=== PATIENT | male | born 1935 | race Caucasian/White ===

== ENCOUNTER 2024-05-22 11:34 | Inpatient (IN) | payer OTHER ==
[~2024-05-22] VITALS: Ht 172.7 cm; Wt 66.4 kg
[2024-05-22 12:04] LABS: Hematocrit 42.5 % (37.0-53.0); Hemoglobin 14.5 g/dL (13.5-17.5); Mean Corpuscular HGB 32.7 pg (26.0-34.0); Mean Corpuscular HGB Conc 34.1 g/dL (31.5-36.5); Mean Corpuscular Volume 96 fL (80-100); Mean Platelet Volume 10.6 fL (9.1-12.4); Platelet Count 632 K/mm3 (150-400); RDW Coefficient Variation 13.7 % (11.7-14.2); RDW Standard Deviation 48.9 fL (35.1-46.3); Red Blood Cell Count 4.43 M/mm3 (4.30-5.90); White Blood Cell Count 42.07 K/mm3 (4.00-11.30)
[2024-05-22 12:17] LABS: Albumin, Blood 1.9 g/dL (3.4-5.0); Albumin/Globulin Ratio 0.4 (0.8-1.8); Bilirubin, Total 0.6 mg/dL (0.1-1.0); Calcium, Blood 9.3 mg/dL (8.5-10.1); Creatinine, Blood 1.2 mg/dL (0.60-1.20); Globulin, Blood 4.6 g/dL (2.2-4.0); Potassium, Blood 4.4 mmol/L (3.5-5.5); Total Protein, Blood 6.5 g/dL (6.4-8.2)
[2024-05-22 13:28] LABS: BASOPHILS PERCENT MAN 0 % (0-2); EOSINOPHILS PERCENT MAN 0 % (0-6); LYMPHOCYTES ABSOLUTE MAN 2.52 K/mm3 (0.84-5.20); LYMPHOCYTES PERCENT MAN 6 % (21-46); MONOCYTES PERCENT MAN 5 % (4-13); NEUTROPHILS ABSOLUTE MAN 37.44 K/mm3 (1.96-9.15); SEG NEUTROPHILS PERCENT MAN 89 % (41-73); TOTAL CELLS COUNTED 100
[2024-05-22] MEDS ORDERED: Azithromycin 500 MG in NS 250 ML IV SCH (18:00)
[2024-05-22] MEDS ORDERED: Polyethylene Glycol 3350 17 gm PO PRN (18:00)
[2024-05-22] MEDS ORDERED: FLU VACC TS2024-25(6MOS UP)/PF 45 MCG/0.5 ML SYRINGE IM SCH (18:00)
[2024-05-22] MEDS ORDERED: Dextromethorphan Polistirix 30 MG/5 ML 5ML Oral Syringe PO PRN (18:05)
[2024-05-22] MEDS ORDERED: HYDROcodone 5-APAP 325 TAB PO PRN (18:05)
[2024-05-22] MEDS ORDERED: CefTRIAXone Sodium 1,000 MG in NS 100 ML IV SCH (19:00)
[2024-05-22] MEDS ORDERED: Docusate Sodium/Senna 1 Tab PO SCH (21:00)
[2024-05-22] MEDS ORDERED: GuaiFENesin 600 MG TabCR PO SCH (21:00)
[2024-05-22 22:03] VITALS: BP 151/61
[2024-05-22] MEDS ORDERED: THERA-D2000 UNIT PO (22:09)
[2024-05-22] MEDS ORDERED: TIMO.5OPSO BOTHEYES (22:10)
[2024-05-22] MEDS ORDERED: GENTEAL TEARS S10 GM BOTHEYES (22:11)
[2024-05-22] MEDS ORDERED: B-1100 M1 PO (22:12)
[2024-05-22] MEDS ORDERED: CYAN1000I IM (22:12)
[2024-05-22] MEDS ORDERED: MULVITA PO (22:12)
[2024-05-22] MEDS ORDERED: GLUCOSE4 GM PO (22:14)
[2024-05-22] MEDS ORDERED: SILDENAFIL CIT100 MG PO (22:15)
--- NOTE | 2024-05-23 05:13 | NUR ---
SHIFT SUMMARY: Pt is admitted for acute hypoxic respiratory failure and is a full code. Is alert and able to make needs known. ADLs have been SBA. denies pain or discomfort when asked. Telly reports sinus in the 90s. When coming to the floor about 2300 a lactic acid of 6.6 was noted. Spoke with ARA Altamirano he gave orders for a follow up test. Results were 2.5. This result was reported to Dr. Ramirez who stated he was going to do a chart review and input any new orders if needed at that time. No new orders noted at time of this writing.
[2024-05-23 06:05] LABS: Hematocrit 44.4 % (37.0-53.0); Hemoglobin 14.8 g/dL (13.5-17.5); Mean Corpuscular HGB 31.8 pg (26.0-34.0); Mean Corpuscular HGB Conc 33.3 g/dL (31.5-36.5); Mean Corpuscular Volume 96 fL (80-100); Mean Platelet Volume 9.6 fL (9.1-12.4); Platelet Count 587 K/mm3 (150-400); RDW Coefficient Variation 13.8 % (11.7-14.2); RDW Standard Deviation 48.3 fL (35.1-46.3); Red Blood Cell Count 4.65 M/mm3 (4.30-5.90); White Blood Cell Count 39.41 K/mm3 (4.00-11.30)
[2024-05-23 06:23] VITALS: BP 114/73
[2024-05-23 06:44] LABS: Albumin, Blood 1.9 g/dL (3.4-5.0); Anion Gap 12 mmol/L (3-11); Blood Urea Nitrogen 32 mg/dL (8-24); Bun/Creatinine Ratio 31.7 (12.0-20.0); CO2, Blood 25 mmol/L (21-32); Calcium, Blood 9.2 mg/dL (8.5-10.1); Chloride, Blood 101 mmol/L (98-108); Creatinine, Blood 1.01 mg/dL (0.60-1.20); Glomerular Filtration Rate 72 (60-); Glucose, Blood 128 mg/dL (70-99); Magnesium, Blood 2.3 mg/dL (1.6-2.4); Phosphorus, Blood 4.3 mg/dL (2.5-4.9); Potassium, Blood 4.3 mmol/L (3.5-5.5); Sodium, Blood 134 mmol/L (136-145)
[2024-05-23 07:30] VITALS: BP 122/71
[2024-05-23 08:13] LABS: Total Protein, Blood 6.9 g/dL (6.4-8.2)
[2024-05-23] MEDS ORDERED: Cholecalciferol 1000 Unit Tablet (=25MCG) PO SCH (09:00)
[2024-05-23 10:29] LABS: International Normalized Ratio 1.33; Prothrombin Time Results 13.9 Sec (9.7-11.5)
[2024-05-23 13:18] LABS: Automated BF RBC Count 0.014 M/mm3 (0-0)
[2024-05-23 13:36] LABS: Body Fluid WBC Count 21460 /mm3 (0-999); RBC Count, Body Fluid 14000 /mm3 (0-0)
[2024-05-23 13:39] LABS: Protein, Body Fluid 3.9 g/dL
[2024-05-23 14:06] LABS: Lactate Dehydrogenase, Body Fl 2072 U/L
[2024-05-23 14:36] LABS: Total Cell Count, Body Fluid 100
[2024-05-23 14:37] LABS: Color, Body Fluid Yellow (None-Yellow)
[2024-05-23 14:38] LABS: Appearance, Body Fluid Cloudy (Clear)
--- NOTE | 2024-05-23 15:52 | NUR ---
MET WITH PT AND HIS , SIDRA AT PT'S BEDSIDE. PT CLARIFIED, HE WANTS TO REMAIN A FULL CODE WITH FULL MEDICAL INTERVENTIONS. PT'S IS IN FULL SUPPORT OF PT'S WISHES. REQUEST SENT TO [facility], REQUESTING A COPY OF PT'S ADVANCE DIRECTIVE.
--- NOTE | 2024-05-23 16:27 | NUR ---
NOTE: NOTIFIED BY TELE OF PT'S HR SUSTANING 120-130. ORDER FOR AN EKG WAS PROVIDED. DR. LUNA NOTIFIED OF EKG COMPLETION AND RESULTS REVIEWED OVER THE PHONE. NO NEW ORDERS AT THIS TIME VIA TELEPHONE.
[2024-05-23] MEDS ORDERED: Carvedilol 3.125 MG Tab PO SCH (17:00)
[2024-05-23] MEDS ORDERED: Diltiazem HCl 5 MG / ML 5ML Vial IV ONE (17:25)
[2024-05-23] MEDS ORDERED: dilTIAZem HCL 30 MG TAB PO PRN (17:35)
--- NOTE | 2024-05-23 17:57 | NUR ---
SHIFT SUMMARY PT AOX4, VERY KNIK EVEN WITH HEARING AIDES IN PLACE. MAKES HIS NEEDS KNOWN. SBA TO THE BR. CONTINENT. MEDICATED FOR PAIN AND INCREASING HR PER THE EMAR. EKG OBTAINED THIS SHIFT AND IN THE CHART. SEE OTHER NOTE ABOUT PT'S HR. PT'S FAMILY AT THE BS THIS SHIFT. PT HAS BEEN ASYMPTOMATIC WITH HR INCREASES. HE HAS BEEN SLEEPING MOST OF THE SHIFT. REPOSITIONED THROUGHOUT THE SHIFT. CALL LIGHT WITHIN REACH, BED LOCKED AND IN THE LOWEST POSITION. WILL REPORT TO ONCOMING NURSE.
[2024-05-23 18:05] VITALS: BP 115/76
--- NOTE | 2024-05-23 18:16 | NUR ---
NOTE: SPOKE WITH TELE, 30 MINUTES POST IV CARDIZEM, PT'S HEART RATE IS NOW SUSTAINING [address] LUNA NOTIFIED AND HE RECOMMENDS GIVING PT A DOSE OF ORAL CARDIZEM.
[2024-05-23 19:53] VITALS: BP 114/72
[2024-05-24 02:45] VITALS: BP 127/66
--- NOTE | 2024-05-24 04:20 | NUR ---
SHIFT SUMMARY PATIENT HAD NO ACUTE CHANGES. AXOX 3-4 AND SBA TO BR. PIV INTACT. TELE MONITOR A-FLUTTER 111 WITH NO TELE EVENTS. DENIES CHEST PAIN, SOB, AND N/V. VSS/AFEBRILE. ON 3L O2 NC AND WILL PULL OFF. PULLED TELE LEADS OFF X ONE. RA BASELINE. CALL LIGHT IN REACH. BED IN LOWEST POSITION. WILL CONTINUE TO MONITOR UNTIL DAY SHIFT NURSE ASSUMES CARE.
[2024-05-24 06:56] LABS: Albumin, Blood 1.5 g/dL (3.4-5.0); Anion Gap 11 mmol/L (3-11); Blood Urea Nitrogen 26 mg/dL (8-24); Bun/Creatinine Ratio 31.4 (12.0-20.0); CO2, Blood 27 mmol/L (21-32); Calcium, Blood 8.7 mg/dL (8.5-10.1); Chloride, Blood 100 mmol/L (98-108); Creatinine, Blood 0.83 mg/dL (0.60-1.20); Glomerular Filtration Rate 85 (60-); Glucose, Blood 116 mg/dL (70-99); Magnesium, Blood 2.3 mg/dL (1.6-2.4); Phosphorus, Blood 3.3 mg/dL (2.5-4.9); Potassium, Blood 3.8 mmol/L (3.5-5.5); Sodium, Blood 134 mmol/L (136-145)
[2024-05-24 07:26] VITALS: BP 137/86
[2024-05-24] MEDS ORDERED: Carvedilol 6.25 MG Tab PO SCH ×2 (08:00)
[2024-05-24 08:57] LABS: Hematocrit 38.8 % (37.0-53.0); Hemoglobin 12.9 g/dL (13.5-17.5); Mean Corpuscular HGB 31.7 pg (26.0-34.0); Mean Corpuscular HGB Conc 33.2 g/dL (31.5-36.5); Mean Corpuscular Volume 95 fL (80-100); Platelet Count 530 K/mm3 (150-400); RDW Coefficient Variation 13.8 % (11.7-14.2); RDW Standard Deviation 48.3 fL (35.1-46.3); Red Blood Cell Count 4.07 M/mm3 (4.30-5.90); White Blood Cell Count 33.69 K/mm3 (4.00-11.30)
[2024-05-24 15:03] VITALS: BP 125/71
[2024-05-24 19:10] VITALS: BP 116/59
[2024-05-24] MEDS ORDERED: NS 1,000 ML BAG IV SCH (19:20)
[2024-05-25] MEDS ORDERED: NS 250 ML IV PRN (00:35)
--- NOTE | 2024-05-25 03:18 | NUR ---
PT WITH DISTRESS OVER HICCUPS, CONSTANT THROUGH SHIFT WITH NO SUCCESS IN DIMINISHING THEM. LS WITH RHONCHI T/O, NO COUGH, VS WNL, AFEBRILE. REMAINS ON 3L OF O2. TELE IS NSR IN THE 'S. STILL AWAITING ECHO, NO PLAN FOR D/C OF THIS SHIFT. UP TO BR TO VOID WITHOUT ASSIST, FORGETS TO PUT O2 BACK ON, CHECKED OFTEN.
[2024-05-25 03:32] VITALS: BP 130/79
[2024-05-25 05:44] LABS: Hematocrit 37.1 % (37.0-53.0); Hemoglobin 12.7 g/dL (13.5-17.5); Mean Corpuscular HGB 32.2 pg (26.0-34.0); Mean Corpuscular HGB Conc 34.2 g/dL (31.5-36.5); Mean Corpuscular Volume 94 fL (80-100); Mean Platelet Volume 9.5 fL (9.1-12.4); Platelet Count 481 K/mm3 (150-400); RDW Coefficient Variation 13.9 % (11.7-14.2); RDW Standard Deviation 47.9 fL (35.1-46.3); Red Blood Cell Count 3.94 M/mm3 (4.30-5.90); White Blood Cell Count 29.51 K/mm3 (4.00-11.30)
[2024-05-25 05:53] LABS: Albumin, Blood 1.6 g/dL (3.4-5.0); Anion Gap 12 mmol/L (3-11); Blood Urea Nitrogen 22 mg/dL (8-24); Bun/Creatinine Ratio 30.3 (12.0-20.0); CO2, Blood 25 mmol/L (21-32); Calcium, Blood 8.6 mg/dL (8.5-10.1); Chloride, Blood 102 mmol/L (98-108); Creatinine, Blood 0.73 mg/dL (0.60-1.20); Glomerular Filtration Rate 88 (60-); Glucose, Blood 108 mg/dL (70-99); Magnesium, Blood 2.2 mg/dL (1.6-2.4); Phosphorus, Blood 3.6 mg/dL (2.5-4.9); Potassium, Blood 3.9 mmol/L (3.5-5.5); Sodium, Blood 135 mmol/L (136-145)
[2024-05-25 07:22] VITALS: BP 120/67
[2024-05-25] MEDS ORDERED: Lactobacil 2-S.Thermo-Bifido 1 1 Cap PO SCH (09:00)
[2024-05-25] MEDS ORDERED: Vancomycin HCL 1,500 MG in NS 250 ML IV ONE (09:50)
[2024-05-25 15:47] VITALS: BP 130/79
[2024-05-25 19:28] VITALS: BP 122/77
[2024-05-25] MEDS ORDERED: Vancomycin HCL 1,000 MG in NS 250 ML IV SCH (22:00)
[2024-05-26 05:19] VITALS: BP 113/57
[2024-05-26 05:33] LABS: Hematocrit 37.5 % (37.0-53.0); Hemoglobin 12.2 g/dL (13.5-17.5); Mean Corpuscular HGB 32.1 pg (26.0-34.0); Mean Corpuscular HGB Conc 32.5 g/dL (31.5-36.5); Mean Platelet Volume 10.1 fL (9.1-12.4); Platelet Count 357 K/mm3 (150-400); RDW Coefficient Variation 14.2 % (11.7-14.2); RDW Standard Deviation 51.7 fL (35.1-46.3); White Blood Cell Count 28.55 K/mm3 (4.00-11.30)
[2024-05-26 05:44] LABS: Mean Corpuscular Volume 99 fL (80-100)
[2024-05-26 05:57] LABS: Bun/Creatinine Ratio 40.7 (12.0-20.0); Calcium, Blood 8.3 mg/dL (8.5-10.1); Creatinine, Blood 0.59 mg/dL (0.60-1.20)
--- NOTE | 2024-05-26 06:22 | NUR ---
pt with increased confusion, continues to moan, and difficult to communicate with this shift. Pt recieving IVABX, no taking PO fluids in well this shift, only voided x1 in last 12 hrs. Pt VS WNL with exception of O2 sat, he desated to 83% on RA and had to increase to 4L to achieve 90%, Pt declinined in the past 24 hrs. will continue to monitor, Pt also converted to afib in past 14 hrs. to have CXR and potential CT placement of chest tube.
[2024-05-26 07:48] VITALS: BP 126/63
--- NOTE | 2024-05-26 09:52 | NUR ---
PATIENT GOING FOR CT-GUIDED CHEST TUBE PLACEMENT. PER CT, PT WILL BE TRANSPORTED JUST BEFORE 1400. NPO AFTER BREAKFAST.
--- NOTE | 2024-05-26 13:55 | NUR ---
PATIENT TO CT FOR CT-GUIDED CHEST TUBE PLACEMENT.
--- NOTE | 2024-05-26 14:49 | NUR ---
PATIENT BACK TO ROOM AFTER CHEST TUBE PLACEMENT.
--- NOTE | 2024-05-26 15:24 | NUR ---
CALL FROM MIKE IN PATHOLOGY; SHE HAS SPECIMEN OF BODY FLUID WITHOUT COLLECTION TIME OR LAB ORDER. NO ORDERS RECEIVED. WILL CONTACT CT TO SEE IF INSTRUCTIONS GIVEN. ALSO DID NOT RECEIVE AFTERCARE INSTRUCTIONS FOR URESIL DRAIN WITH WHICH PT RETURNED.
--- NOTE | 2024-05-26 15:32 | NUR ---
SPOKE WITH HAILEE IN CT: URESIL DRAIN WAS PLACED IN ABSCESS NEAR THE CHEST WALL. RADIOLOGIST IS READING, RIGHT NOW, AND THEN NOTE WILL BE DICTATED. DECISION REGARDING FLUID COLLECTION PATHOLOGY IS UP TO THE ORDERING PROVIDER. AWAITING CALL BACK FROM DR. HADLEY.
[2024-05-26 15:43] VITALS: BP 111/65
--- NOTE | 2024-05-26 18:12 | NUR ---
END OF SHIFT SUMMARY: A&Ox4. COOPERATIVE WITH CARE, BUT IMPULSIVE. DOES NOT UTILIZE CALL LIGHT AND IS ABLE TO ADVOCATE NEEDS. HARD OF HEARING, SO HAS DIFFICULTY WITH ANSWERING QUESTIONS. CONTINENT OF BOWEL AND BLADDER; SBA TO BATHROOM FOR LINE MANAGEMENT. MEDS WHOLE, BSP-CN-Y-TIME WITH FLUIDS. HAD US-GUIDED PLACEMENT OF 12-ENGLISH PIGTAIL CATHETER IN LEFT POSTERIOR CHEST WALL. URESIL DRAINAGE COLLECTION BAG ATTACHED, DRAINING CLOUDY, YELLOW FLUID. DID EVENTUALLY AGREE TO TAKE A PRN NORCO AND HAS BEEN SLEEPING MOST OF AFTERNOON. NOTED TO HAVE EXCORIATION WITH FIRST-LAYER PRESSURE INJURY NOTED TO INTERGLUTEAL CLEFT. MEPILEX APPLIED. TELE A-FLUTTER THIS MORNING AND CONVERTED TO SINUS SOMETIME THIS AFTERNOON. BED IN LOWEST POSITION, CALL LIGHT WITHIN REACH, ALL NEEDS MET. REPORT TO ONCOMING NURSE.
--- NOTE | 2024-05-26 18:37 | NUR ---
SUAD CAMP, NOTIFIED THIS RN THAT PATIENT JUMPED UP TO USE THE BATHROOM, HE HAS BEEN DOING ALL DAY, AND DID NOT TAKE HIS URESIL BAG WITH HIM, PULLING THE TUBE, BEFORE STAFF WERE ABLE TO HELP HIM. AREA WITH SCAN AMOUNT OF BLEEDING. TUBE INTACT. ON-CALL, DR. BENJAMIN, NOTIFIED.
[2024-05-26 18:43] VITALS: BP 98/60
--- NOTE | 2024-05-26 18:43 | NUR ---
TELE CALLED STATING HR 39. PATIENT HAD JUST AMBULATED BACK FROM THE BATHROOM AND WAS LAYING IN BED.
[2024-05-26] MEDS ORDERED: Atropine Sulfate 0.1 MG/ML 10ML SYR IV PRN (18:55)
[2024-05-26 19:15] VITALS: BP 121/60
--- NOTE | 2024-05-26 19:48 | NUR ---
END OF SHIFT SUMMARY: A&Ox4. COOPERATIVE WITH CARE, BUT IMPULSIVE. DOES NOT UTILIZE CALL LIGHT AND IS ABLE TO ADVOCATE NEEDS. HARD OF HEARING, SO HAS DIFFICULTY WITH ANSWERING QUESTIONS. CONTINENT OF BOWEL AND BLADDER; SBA TO BATHROOM FOR LINE MANAGEMENT. MEDS WHOLE, EXY-EB-L-TIME WITH FLUIDS. HAD US-GUIDED PLACEMENT OF 12-[place] PIGTAIL CATHETER IN LEFT POSTERIOR CHEST WALL. URESIL DRAINAGE COLLECTION BAG ATTACHED, DRAINING CLOUDY, YELLOW FLUID. DID EVENTUALLY AGREE TO TAKE A PRN NORCO AND HAS BEEN SLEEPING MOST OF AFTERNOON. NOTED TO HAVE EXCORIATION WITH FIRST-LAYER PRESSURE INJURY NOTED TO INTERGLUTEAL CLEFT. MEPILEX APPLIED. TELE A-FLUTTER THIS MORNING AND CONVERTED TO SINUS SOMETIME THIS AFTERNOON. PATIENT PULLED URESIL SHORTLY AFTER PLACEMENT WHEN JUMPING UP TO USE THE RESTROOM AND HR DROPPED <40 SHORTLY THEREAFER. PROVIDER NOTIFIED. BED IN LOWEST POSITION, CALL LIGHT WITHIN REACH, ALL NEEDS MET. REPORT TO ONCOMING NURSE.
[2024-05-26 21:27] LABS: Vancomycin, Trough 16.1 ug/mL (5.0-10.0)
[2024-05-27 00:27] VITALS: BP 113/62
[2024-05-27 03:03] VITALS: BP 117/61
--- NOTE | 2024-05-27 07:31 | NUR ---
SHIFT SUMMARY AT START OF SHIFT, PT SLEEPING IN HIS BED. WITH EVENING MED PASS, PT IV WAS OCCLUDED AND UNABLE TO FLUSH. DC D IV AND STARTED NEW 20G IV IN RIGHT FOREARM. PT TOLLERATED WELL. NOTED ON EMAR THAT PT HAD ATROPINE ORDERED. CALLED DR. MILAN TO LET HIM KNOW THIS MEDICATION IS NOT APPROPRIATE FOR MEDICAL STATUS, AND CAN NOT BE GIVEN BY RN S ON THIS FLOOR. MED DC D. 0230, PT UP AT BEDSIDE TO USE URINAL. 200ML OUTPUT.
[2024-05-27 08:07] VITALS: BP 128/80
[2024-05-27] MEDS ORDERED: Enoxaparin 40 MG/0.4 ML SYR SC SCH (13:00)
[2024-05-27 14:01] LABS: Hematocrit 35.4 % (37.0-53.0); Hemoglobin 11.8 g/dL (13.5-17.5); Mean Corpuscular HGB 31.4 pg (26.0-34.0); Mean Corpuscular HGB Conc 33.3 g/dL (31.5-36.5); Mean Platelet Volume 9.3 fL (9.1-12.4); Platelet Count 437 K/mm3 (150-400); RDW Standard Deviation 48.1 fL (35.1-46.3); Red Blood Cell Count 3.76 M/mm3 (4.30-5.90); White Blood Cell Count 21.15 K/mm3 (4.00-11.30)
[2024-05-27] MEDS ORDERED: Dose Adjust by Pharmacy XX STA (14:03)
[2024-05-27] MEDS ORDERED: Heparin Sodium,Porcine/0.5 NS 500 ML IV SCH (14:05)
[2024-05-27 14:07] LABS: Mean Corpuscular Volume 94 fL (80-100)
[2024-05-27 14:12] LABS: International Normalized Ratio 1.17; Prothrombin Time Results 12.4 Sec (9.7-11.5)
[2024-05-27 14:55] LABS: BAND PERCENT MAN 29 % (0-8); BASOPHILS PERCENT MAN 0 % (0-2); EOSINOPHILS ABSOLUTE MAN 0.21 K/mm3 (0.00-0.68); EOSINOPHILS PERCENT MAN 1 % (0-6); LYMPHOCYTES ABSOLUTE MAN 1.48 K/mm3 (0.84-5.20); LYMPHOCYTES PERCENT MAN 7 % (21-46); METAMYELOCYTE ABSOLUTE MAN 0.42 K/mm3 (0.00-0.00); METAMYELOCYTE PERCENT MAN 2 % (0-0); MONOCYTES ABSOLUTE MAN 0.84 K/mm3 (0.16-1.47); MONOCYTES PERCENT MAN 4 % (4-13); MYELOCYTE ABSOLUTE MAN 0.21 K/mm3 (0.00-0.00); MYELOCYTE PERCENT MAN 1 % (0-0); NEUTROPHILS ABSOLUTE MAN 17.97 K/mm3 (1.96-9.15); SEG NEUTROPHILS PERCENT MAN 56 % (41-73); TOTAL CELLS COUNTED 100
[2024-05-27 16:38] VITALS: BP 128/80
[2024-05-27 16:56] VITALS: BP 119/85
--- NOTE | 2024-05-27 17:22 | NUR ---
DR MENDOZA PULMONOLOGY IN TO SEE PT THIS AFT. STATES DRAFTER AUTOMOTIVE DESIGN LAYOUT PT LEFT RIGCAGE IS FROM WHERE PT PULLED CHEST TUBE OUT YESTERDAY. OKAY TO LEAVE STICKER AND PLASTIC SINGH. NO NEED TO REMOVE. EXPECTING TO TRANSFER TO [place]. DR SOTO.
--- NOTE | 2024-05-27 18:34 | NUR ---
CALLED REPORT TO RUTH FELIX AT [facility],
--- NOTE | 2024-05-27 18:57 | NUR ---
TRANSPORT HERE AT 1850.
== END 2024-05-27 19:01 | disposition short-term general hospital (02) | DRG 871 ==
LOC: ER 11:34 → ERHOLD 17:59 → MEDS 17:59
PROVIDERS: Emergency Medicine; Internal Medicine; ADMIT Internal Medicine
PROC: 3E03329 Introduction of Other Anti-infective into Peripheral Vein, Percutaneous Approach (ICD-10-PCS; 2024-05-22)
PROC: 0W9B3ZZ Drainage of Left Pleural Cavity, Percutaneous Approach (ICD-10-PCS; principal; 2024-05-23)
PROC: 0W9B30Z Drainage of Left Pleural Cavity with Drainage Device, Percutaneous Approach (ICD-10-PCS; 2024-05-26)
DX: A41.9 Sepsis, unspecified organism (principal); J18.9 Pneumonia, unspecified organism; J96.01 Acute respiratory failure with hypoxia; J86.9 Pyothorax without fistula; J90 Pleural effusion, not elsewhere classified; I48.92 Unspecified atrial flutter; R65.20 Severe sepsis without septic shock; F10.10 Alcohol abuse, uncomplicated; H35.30 Unspecified macular degeneration; N52.9 Male erectile dysfunction, unspecified; E78.5 Hyperlipidemia, unspecified; B95.4 Other streptococcus as the cause of diseases classified elsewhere; E88.09 Other disorders of plasma-protein metabolism, not elsewhere classified; I44.30 Unspecified atrioventricular block; Z87.19 Personal history of other diseases of the digestive system; Z90.89 Acquired absence of other organs; Z87.891 Personal history of nicotine dependence; Z98.890 Other specified postprocedural states; Z79.899 Other long term (current) drug therapy; Z87.11 Personal history of peptic ulcer disease; Z86.69 Personal history of other diseases of the nervous system and sense organs
CPT/HCPCS: 32555; 36415; 71045; 71260; 75989; 80048; 80053; 80069; 80202; 83605; 83615; 83735; 84145; 84155; 84157; 84443; 84484; 85025; 85027; 85520; 85610; 85730; 87040; 87070; 87075; 87205; 88108; 88305; 89051; 93005; 93010; 93306; 94760; 99285-25; A9270; J0456; J0696; J1644; J3370; J7050; Q9967